=== PATIENT | male | born 1930 | race Two or more races ===

== ENCOUNTER 2017-04-02 15:07 | Inpatient (IN) | payer OTHER ==
[~2017-04-02] VITALS: Ht 177.8 cm; Wt 90.7 kg
--- NOTE | 2017-04-02 15:43 | Emergency Room Report ---
History of Present Illness General Chief Complaint: Dyspnea/Respdistress Source: Medical Record, EMS Present Illness HPI 86-year-old male presents ED for evaluation. Per EMS patient resides in [facility] and appeared more short of breath today. O2 saturation low on room air, improved on simple mask. Patient appears more altered than usual. Patient is currently being treated for pneumonia at the facility. Blood pressure also low in the field. IV fluid started. No signs of distress on arrival. No other aggravating relieving factors. No other associated symptoms Allergies: Coded Allergies: FISH OIL (Verified Allergy, Unknown, 04/02/17) SULFA (SULFONAMIDE ANTIBIOTICS) (Verified Allergy, Unknown, 04/02/17) Patient History Past Medical History: CAD, GERD Past Surgical History: none Pertinent Family History: none Social History: Denies: alcohol use, drug use, smoking Immunizations: UTD Reviewed Nursing Documentation: PMH: Agreed, PSxH: Agreed Nursing Documentation-PMH Hx Cardiac Problems: Yes - CAD, , angina, high cholesterol Hx Gastrointestinal Problems: Yes - GERD Review of Systems All Other Systems: limited Physical Exam Vital Signs Date Time Temp Pulse Resp B/P Pulse Ox O2 Delivery O2 Flow Rate FiO2 04/02/17 15:05 97.3 116 32 87/52 88 Room Air Sp02 EP Interpretation: reviewed, normal General Appearance: no apparent distress, lethargic Head: normocephalic Eyes: bilateral eye PERRL, bilateral eye normal inspection ENT: normal ENT inspection Neck: normal inspection Respiratory: crackles Cardiovascular #1: tachycardia Gastrointestinal: normal inspection Rectal: deferred Genitourinary: no CVA tenderness Musculoskeletal: normal inspection Neurologic: other - lethargic Psychiatric: other - lethargic Skin: normal inspection Lymphatic: normal inspection Medical Decision Making Diagnostic Impression: Primary Impression: Sepsis due to pneumonia Additional Impression: Renal insufficiency ER Course Hospital Course 86-year-old male presents to ED with shortness of breath, crackles, hypotensive Differential diagnoses include: Pneumonia, UTI, sepsis, dehydration, [place]/ unstable angina Clinical course Patient placed on stretcher. 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 After initial history and physical, I ordered labs, IV fluids, EKG, chest x- ray, blood cultures, UA. Labs - BUN/Cr elevated, no leukocytosis, troponins negative, lactate > 2 CXR -RLL infiltrate EKG - sinus tachycardia, no ischemic changes interpreted by me Abx given. And 30 mL per KG fluid bolus. On reassessment blood pressure and tachycardia is resolved O2 sats improved on nasal cannula . Patient is now more alert and oriented Case discussed with Dr Mai and they agreed to admit patient to their service for further care and support I feel this is a highly complex case requiring extensive working including EKG/ Rhythm strip, Xray/CT/US, Blood/urine lab work, repeat exams while in ED, and administration of strong opiates/narcotics for pain control, admission to hospital or close patient follow up. Diagnosis - sepsis due to pneumonia, renal insufficiency Patient admitted to [facility] in serious condition Labs Test 04/02/17 15:30 04/02/17 16:30 04/02/17 17:00 White Blood Count 10.5 K/UL (4.8-10.8) Red Blood Count 2.91 M/UL (4.70-6.10) Hemoglobin 8.2 G/DL (14.2-18.0) Hematocrit 25.0 % (42.0-52.0) Mean Corpuscular Volume 86 FL (80-99) Mean Corpuscular Hemoglobin 28.1 PG (27.0-31.0) Mean Corpuscular Hemoglobin Concent 32.7 G/DL (32.0-36.0) Red Cell Distribution Width 17.4 % (11.6-14.8) Platelet Count 108 K/UL (150-450) Mean Platelet Volume 5.0 FL (6.5-10.1) Neutrophils (%) (Auto) 82.5 % (45.0-75.0) Lymphocytes (%) (Auto) 9.2 % (20.0-45.0) Monocytes (%) (Auto) 7.9 % (1.0-10.0) Eosinophils (%) (Auto) 0.1 % (0.0-3.0) Basophils (%) (Auto) 0.3 % (0.0-2.0) Sodium Level 136 mEQ/L (135-145) Potassium Level 4.8 mEQ/L (3.4-4.9) Chloride Level 101 mEQ/L (98-107) Carbon Dioxide Level 21 mEQ/L (20-30) Anion Gap 14 (5-15) Blood Urea Nitrogen 48 mg/dL (7-23) Creatinine 2.0 mg/dL (0.7-1.2) Estimat Glomerular Filtration Rate mL/min (>60) Glucose Level 142 mg/dL (74-106) Lactic Acid Level 2.30 mmol/L (0.66-2.22) 2.10 mmol/L (0.66-2.22) Calcium Level 9.5 mg/dL (8.6-10.2) Total Bilirubin 0.5 mg/dL (0.0-1.2) Aspartate Amino Transf (AST/SGOT) 47 U/L (5-40) Alanine Aminotransferase (ALT/SGPT) 14 U/L (3-41) Alkaline Phosphatase 870 U/L (40-129) Total Creatine Kinase 341 U/L (38-174) Creatine Kinase MB 3.1 ng/mL (< 6.7) Creatine Kinase MB Relative Index 0.9 Troponin I < 0.30 ng/mL (<=0.30) Pro-B-Type Natriuretic Peptide 3200 pg/mL (0-450) Total Protein 6.1 g/dL (6.6-8.7) Albumin 2.5 g/dL (3.5-5.2) Globulin 3.6 g/dL Albumin/Globulin Ratio 0.6 (1.0-2.7) EKG Diagnostic Results Rate: tachycardiac Rhythm: NSR ST Segments: no acute changes ASA given to the pt in ED: No Rhythm Strip Diag. Results EP Interpretation: yes Rhythm: NSR, no PVC's, no ectopy Chest X-Ray Diagnostic Results Chest X-Ray Diagnostic Results : Chest X-Ray Ordered: Yes # of Views/Limited/Complete: 1 View Indication: Shortness of Breath EP Interpretation: Yes Interpretation: no pneumothorax, other - sternotomy wires, RLL atelectasis/ infiltrate Impression: Other - pneumonia Interpreting ER Provider: Electronically signed by Lee Triana MD Last Vital Signs Date Time Temp Pulse Resp B/P Pulse Ox O2 Delivery O2 Flow Rate FiO2 04/02/17 15:05 97.3 116 32 87/52 88 Room Air Status: improved Disposition: ADMITTED INPATIENT Condition: Serious LEE TRIANA M.D. Apr 02, 2017 15:43
[2017-04-02 15:49] VITALS: BP 105/75
[2017-04-02] MEDS ORDERED: AZITHROMYCIN250 MG ORAL (16:03)
[2017-04-02] MEDS ORDERED: SENNA S TABLET1 EAC1 PO (16:03)
[2017-04-02] MEDS ORDERED: LEXAPRO10 MG ORAL (16:03)
[2017-04-02] MEDS ORDERED: ASPIRIN EC81 MG ORAL (16:03)
[2017-04-02] MEDS ORDERED: ACETAMINOPHEN325 M1 ORAL (16:03)
[2017-04-02] MEDS ORDERED: ISOPTO TEARS15 ML BOTH EYES (16:03)
[2017-04-02] MEDS ORDERED: METOPROLOL TART25 MG ORAL (16:03)
[2017-04-02] MEDS ORDERED: ZANTAC150 MG ORAL (16:03)
[2017-04-02] MEDS ORDERED: BISACODYL5 MG ORAL (16:03)
[2017-04-02] MEDS ORDERED: ARTIFICIAL TEAR15 ML LEFT EYE (16:03)
[2017-04-02] MEDS ORDERED: VITAMIN D1000 UNI1 ORAL (16:03)
[2017-04-02] MEDS ORDERED: DOCUSATE SODIU100 MG ORAL (16:03)
[2017-04-02] MEDS ORDERED: FERROUS SULFAT325 MG ORAL (16:03)
[2017-04-02] MEDS ORDERED: NORCO 5-325 TA1 EAC1 ORAL (16:03)
[2017-04-02] MEDS ORDERED: ATORVASTATIN CA80 MG ORAL (16:03)
[2017-04-02] MEDS ORDERED: MILK OF MA400 MG/51 ORAL (16:03)
[2017-04-02] MEDS ORDERED: POLYETHYLENE LEFT EYE (16:03)
[2017-04-02] MEDS ORDERED: CYCLOSPORINE LEFT EYE (16:03)
[2017-04-02] MEDS ORDERED: ROCEPHIN 11 GM/50 ML IVPB (16:03)
[2017-04-02] MEDS ORDERED: TAMSULOSIN HCL0.4 MG ORAL (16:03)
--- NOTE | 2017-04-02 16:03 | Diagnostic Imaging Report ---
Indication: Chest pain Technique: One view of the chest Comparison: none Findings: Patient is slightly rotated to the right. There is some atelectasis at the right lung base and possibly some focal patchy consolidation. Lungs and pleural spaces are otherwise clear. The bones are equivocally diffusely somewhat sclerotic. Is evidence of prior CABG. Heart size is upper limits of normal Impression: Right basilar atelectasis and possibly some focal patchy consolidation Equivocal diffuse mild osteosclerosis, may reflect diffuse systemic disease if real.
[2017-04-02 16:04] LABS: TROPONIN I < 0.30 ng/mL (<=0.30)
[2017-04-02 16:06] LABS: BASOPHILS % (AUTO) 0.3 % (0.0-2.0); EOSINOPHILS % (AUTO) 0.1 % (0.0-3.0); LYMPHOCYTES % (AUTO) 9.2 % (20.0-45.0); MEAN CORPUSCULAR HEMOGLOBIN 28.1 PG (27.0-31.0); MEAN CORPUSCULAR HGB CONC 32.7 G/DL (32.0-36.0); MEAN CORPUSCULAR VOLUME 86 FL (80-99); MONOCYTES % (AUTO) 7.9 % (1.0-10.0); NEUTROPHILS % (AUTO) 82.5 % (45.0-75.0); PLATELET COUNT 108 K/UL (150-450); RED BLOOD COUNT 2.91 M/UL (4.70-6.10); RED CELL DISTRIBUTION WIDTH 17.4 % (11.6-14.8); WHITE BLOOD COUNT 10.5 K/UL (4.8-10.8)
[2017-04-02 16:07] LABS: ALANINE AMINOTRANSFERASE 14 U/L (3-41); ALBUMIN/GLOBULIN RATIO 0.6 (1.0-2.7); ANION GAP 14 (5-15); ASPARTATE AMINO TRANSFERASE 47 U/L (5-40); CALCIUM 9.5 mg/dL (8.6-10.2); CARBON DIOXIDE 21 mEQ/L (20-30); CHLORIDE 101 mEQ/L (98-107); HEMOLYSIS 4; POTASSIUM 4.8 mEQ/L (3.4-4.9); SODIUM 136 mEQ/L (135-145); TOTAL PROTEIN 6.1 g/dL (6.6-8.7)
[2017-04-02 16:10] LABS: REFLEX LACTIC ACID YES OR NO YES
[2017-04-02 16:18] LABS: CKMB 3.1 ng/mL (< 6.7)
[2017-04-02] MEDS ORDERED: Vancomycin 1.5gm/D5W 250ml 250 ML IVPB ONE (16:30)
[2017-04-02] MEDS ORDERED: Zosyn 2.25gm inj IV SCH (16:30)
[2017-04-02] MEDS ORDERED: Piperacillin/Tazobactam 3.375 GM in NS 110 ML IVPB ONE (16:30)
[2017-04-02 17:17] LABS: APPEARANCE,URINE CLOUDY; KETONES,URINE 1+ (NEGATIVE); LEUKOCYTE ESTERASE ,URINE 3+ (NEGATIVE); NITRITE,URINE NEGATIVE (NEGATIVE); PH,URINE 5 (4.5-8.0); PROTEIN,URINE 3+ (NEGATIVE); UROBILINOGEN,URINE NORMAL MG/DL (0.0-1.0)
[2017-04-02 17:32] LABS: BACTERIA,URINE MANY /HPF; RBC,URINE 0-2 /HPF (0 - 0)
[2017-04-02 17:33] LABS: URIC ACID CRYSTALS,URINE MODERATE /LPF
[2017-04-02 17:34] LABS: AMORPHOUS SEDIMENT,UR MODERATE /LPF
[2017-04-02] MEDS: DuoNeb 0.5-3(2.5)mg/3ml neb HHN SCH ×2 (19:00→23:23)
[2017-04-02] MEDS ORDERED: Zosyn 3.375gm inj ONE (19:15)
[2017-04-02 19:20] VITALS: BP 124/71
--- NOTE | 2017-04-02 20:00 | History and Physical Report ---
DATE OF ADMISSION: 04/02/2017 CHIEF COMPLAINT: Sepsis. HISTORY OF PRESENT ILLNESS: The patient an 86-year-old man who apparently was hospitalized recently for gross hematuria. He has a Bella catheter and he was transferred to the nursing facility from some outside hospital. He developed pneumonia and was treated at facility with cephalosporin and azithromycin, but today became hypotensive and poorly responsive. He was transferred to the emergency department by paramedics today. He was found to be hypotensive and fluids were given with improvement. The patient can provide no further history and states he is feeling fine. PAST MEDICAL HISTORY: The patient has metastatic prostate cancer, hypertension, acid reflux, coronary disease with coronary artery bypass graft x4, chronic kidney disease stage 3, chronic urinary retention, major depression, and chronic anemia. He has severe physical deconditioning, bilateral cataracts, and urinary tract infection. He has refused a bone scan recently. He has hyperlipidemia and is followed by Cardiology. He has hypertension as well as vitamin D deficiency and chronic back pain. Family contact is the patient's brother #[phone]. CODE STATUS: Full Code. ALLERGIES: Fish oil and sulfa. REVIEW OF SYSTEMS: Cannot be obtained. PHYSICAL EXAMINATION: GENERAL: The patient is alert, lying in bed, answering some simple questions. VITAL SIGNS: He has sinus tachycardia. Temperature is normal. The blood pressure was 87/52, but improved to 105 systolic with fluids and saturation was 88%, but improved with oxygen. SKIN: Warm and dry. HEENT: The head is normocephalic. He is overweight. NECK: No jugular venous distention. CHEST: He has rhonchi. CARDIAC: Rhythm is regular. ABDOMEN: Soft and nontender. There is no liver spleen enlargement. No mass. There is a small umbilical hernia. GENITOURINARY: Urinary system shows a Bella catheter with no hematuria. There is minimal sediment, but the low urine output in the bag. EXTREMITIES: He had no edema. NEUROLOGIC: Follows simple commands. No gross focal weakness. LABORATORY DIAGNOSTIC [place]: [place] [address], hemoglobin 8.2, and platelets 108,000. BUN is 48, creatinine 2.0 (baseline creatinine is 1.2), blood sugar 142. Lactic acid is 2.3. Alkaline phosphatase is elevated at 870. Troponin is negative. ProBNP is 3200. Albumin 2.5. Urinalysis is pending. Chest x-ray shows a right lower lobe infiltrate. IMPRESSION: 1. Sepsis with shock, improved. 2. Pneumonia with hypoxemic respiratory failure. 3. Metastatic prostate cancer with indwelling Bella catheter due to urinary retention and hematuria. 4. Coronary heart disease, status post bypass surgery. 5. Dehydration with acute kidney injury. 6. Chronic kidney disease stage 3. 7. Hypertension, now hypotensive. 8. Possible congestive heart failure with elevated proBNP. 9. Hyperlipidemia. 10. Thrombocytopenia likely due to sepsis. 11. . PLAN: The patient will be admitted to [facility]. We will give fluids and get Nephrology and Cardiology consultation. Antibiotics will be administered as well as respiratory treatments. Joni Mai M.D. DR: CAITY JOB#: [id number] CC: Joni Mai M.D.; Fax#: [phone] Lang, M.D. ; Fax#: [phone] Kattan, M.D.
[2017-04-02 20:32] VITALS: BP 123/71
[2017-04-02] MEDS: D5NS 1,000 ML IV SCH (20:50)
--- NOTE | 2017-04-02 21:45 | Consultation ---
DATE OF CONSULTATION: 04/02/2017 REFERRING PHYSICIAN: Joni Mai M.D. REASON FOR CONSULTATION: Elevated BUN and creatinine and elevated CPK. HISTORY OF PRESENT ILLNESS: The patient presents with hypotension, hypoxemia, O2 saturation 88%. He is a resident of an [facility] and not a good historian. He has a history of prior coronary artery bypass surgery. Other records indicate he has chronic kidney disease stage 3, adult failure to thrive, generalized muscle weakness, inability to walk, primary hypertension, hyperlipidemia, gastroesophageal reflux, and obstructive and reflux uropathy. The details of the above are not available. He has had a Klebsiella urinary tract infection recently apparently. PAST MEDICAL HISTORY: In addition to the above, there is a history of prostate cancer, chronic urinary retention with indwelling Bella, recently hospitalized for hematuria. He has had hypotension in the past and delirium. He had a fall at [facility] recently. Also, he has a history of protein-calorie malnutrition, hyperlipidemia, hypertension, GERD, vitamin D deficiency, bilateral shoulder pain and arthritis. His past labs from notes in the chart, his creatinine has been in the range of 1.4 to 1.7 with a GFR of 50. Note he had a creatinine 1.2 with a BUN of 32 on 03/30/2017. PAST SURGICAL HISTORY: Coronary artery bypass surgery. MEDICATIONS: Current medications at the [facility] include the following Artificial Tears and baby aspirin. The rest of his medication list is not here on this chart. From the emergency room record, he has also been on atorvastatin, Zithromax, Dulcolax, ceftriaxone, vitamin D3, DSS, Lexapro, ferrous sulfate, Isopto tears, milk of magnesia, metoprolol, polyethylene glycol, ranitidine, Senna, and tamsulosin. HABITS: He denies smoking or alcohol. REVIEW OF SYSTEMS: Other than the above, no other pertinent information PHYSICAL EXAMINATION: GENERAL: The patient is seen in the emergency department. He is a chronically ill-appearing elderly man, weak, but in no severe distress. VITAL SIGNS: Temperature 98.9 degrees, pulse 116, respirations 32, blood pressure 105/75 and earlier 87/52, and O2 saturation is 96% on nasal cannula four liters, 88% on room air. HEENT: Oral mucosa is dry. There is ptosis of the left eyelid. Ocular motions intact in all directions. NECK: No adenopathy. LUNGS: Clear. Distant breath sounds. HEART: Rhythm is regular. I hear no murmur. He is tachycardic. ABDOMEN: Soft. I am unable to feel liver or spleen. No focal tenderness. GENITOURINARY: Penis and testes normal. Bella catheter in place. EXTREMITIES: No edema. There is some slight cyanosis of the toes. NEUROLOGIC: He is alert and responsive, but a poor historian. No focal weakness. PERTINENT LABORATORY AND DIAGNOSTIC DATA: White count 10.5 and hemoglobin 8.2. Sodium 136, potassium 4.8, chloride 101, CO2 21, BUN 48, creatinine 2, and glucose of 142. Lactic acid 2.3 and 2.1. AST is 47, alkaline phosphatase 870. CK is 341. BNP is 3200. Troponin less than 0.30. Chest x-ray shows right basilar atelectasis. Urinalysis shows 10-15 white cells per high-power field, moderate uric acid crystals, and moderate amorphous sediment. IMPRESSION: 1. Acute kidney injury likely prerenal, possible acute tubular necrosis secondary to sepsis. 2. Chronic kidney disease stage 3. 3. Pyuria and possible urinary tract infection, possible pyelonephritis and sepsis. 4. Chronic urinary retention. 5. Recurring urinary tract infections. 6. History of coronary artery bypass. 7. Atelectasis and hypoxemia. 8. Failure to thrive. 9. Elevated alkaline phosphatase. 10. Rhabdomyolysis. PLAN: The patient will be hydrated cautiously and broad-spectrum antibiotics. I will order abdominal ultrasound in view of his abnormal liver enzymes. We will watch his renal function closely and try to avoid any nephrotoxic agent. Thank you so much. Willie Cash M.D. DR: PIERRE JOB#: [id number] CC:
[2017-04-03] VITALS: BP 120/50
[2017-04-03] MEDS: DuoNeb 0.5-3(2.5)mg/3ml neb HHN SCH ×6 (03:24→23:23)
[2017-04-03 04:00] VITALS: BP 111/62
[2017-04-03] MEDS: Zosyn 3.375gm q8h **Extended infusion IVPB SCH ×6 (04:00→22:00)
[2017-04-03] MEDS: D5NS 1,000 ML IV SCH (04:00)
[2017-04-03 05:11] LABS: MEAN CORPUSCULAR HGB CONC 32.2 G/DL (32.0-36.0); MEAN CORPUSCULAR VOLUME 87 FL (80-99); PLATELET COUNT 110 K/UL (150-450); RED BLOOD COUNT 2.65 M/UL (4.70-6.10); RED CELL DISTRIBUTION WIDTH 17.1 % (11.6-14.8); WHITE BLOOD COUNT 8.6 K/UL (4.8-10.8)
[2017-04-03 06:02] LABS: TROPONIN I < 0.30 ng/mL (<=0.30)
[2017-04-03 06:07] LABS: URIC ACID 7.8 mg/dL (3.0-7.5)
[2017-04-03 06:27] LABS: ALANINE AMINOTRANSFERASE 14 U/L (3-41); ALBUMIN/GLOBULIN RATIO 0.7 (1.0-2.7); ANION GAP 12 (5-15); ASPARTATE AMINO TRANSFERASE 52 U/L (5-40); CALCIUM 9.1 mg/dL (8.6-10.2); CARBON DIOXIDE 22 mEQ/L (20-30); CHLORIDE 104 mEQ/L (98-107); CREATININE 1.6 mg/dL (0.7-1.2); HEMOLYSIS 2; SODIUM 138 mEQ/L (135-145); TOTAL PROTEIN 5.2 g/dL (6.6-8.7)
[2017-04-03 08:00] VITALS: BP 102/61
[2017-04-03 08:13] LABS: BAND NEUTROPHILS % (MANUAL) 0 % (0-8); BASOPHILS % (MANUAL) 0 % (0-2); EOSINOPHILS % (MANUAL) 0 % (0-3); LYMPHOCYTES % (MANUAL) 9 % (20-45); NEUTROPHILS % (MANUAL) 87 % (45-75); PLATELET ESTIMATE DECREASED; PLATELET MORPHOLOGY NORMAL; TOTAL CELLS COUNTED 100
--- NOTE | 2017-04-03 08:58 | Pulmonology Progress Note ---
Assessment/Plan Assessment/Plan 1. Sepsis with shock, improved. 2. Pneumonia with hypoxemic respiratory failure. 3. Metastatic prostate cancer with indwelling Bella catheter due to urinary retention and hematuria. 4. Coronary heart disease, status post bypass surgery. 5. Dehydration with acute kidney injury. 6. Chronic kidney disease stage 3. 7. Hypertension, now hypotensive. 8. Possible congestive heart failure with elevated proBNP. 9. Hyperlipidemia. 10. Thrombocytopenia likely due to sepsis. 11. Anemia PLAN: Continue fluids Nephrology and Cardiology consultation. Antibiotics will be administered as well as respiratory treatments. Consider transfusion Subjective Interval Events: Comfortable Constitutional: Reports: no symptoms HEENT: Repors: no symptoms Respiratory: Reports: no symptoms Cardiovascular: Reports: no symptoms Gastrointestinal/Abdominal: Reports: no symptoms Allergies: Coded Allergies: FISH OIL (Verified Allergy, Unknown, 04/02/17) SULFA (SULFONAMIDE ANTIBIOTICS) (Verified Allergy, Unknown, 04/02/17) Objective Last 24 Hour Vital Signs Date Time Temp Pulse Resp B/P Pulse Ox O2 Delivery O2 Flow Rate FiO2 04/03/17 07:45 110 20 99 Nasal Cannula 3.0 04/03/17 07:33 Nasal Cannula 3.0 04/03/17 07:33 110 19 96 Nasal Cannula 3.0 04/03/17 07:32 96 Nasal Cannula 3.0 04/03/17 04:00 100 04/03/17 04:00 98.7 103 24 111/62 96 Nasal Cannula 2.0 04/03/17 03:36 91 16 100 Nasal Cannula 2.0 04/03/17 03:25 99 16 97 Nasal Cannula 2.0 04/03/17 00:00 98.1 101 24 120/50 100 Nasal Cannula 2.0 04/03/17 00:00 97 04/02/17 23:39 Nasal Cannula 2.0 04/02/17 23:39 100 16 100 Nasal Cannula 2.0 04/02/17 23:39 100 Nasal Cannula 2.0 04/02/17 23:37 103 16 Nasal Cannula 2.0 04/02/17 23:23 104 16 100 Nasal Cannula 2.0 04/02/17 21:31 100 04/02/17 21:09 98.9 100 23 123/71 100 Nasal Cannula 4.0 04/02/17 20:32 98.9 100 123/71 100 Nasal Cannula 4.0 04/02/17 19:20 98.9 94 23 124/71 100 Nasal Cannula 4.0 04/02/17 15:49 116 32 Nasal Cannula 4.0 04/02/17 15:49 98.9 101 32 105/75 96 Nasal Cannula 4.0 04/02/17 15:05 97.3 116 32 87/52 88 Room Air Intake and Output 04/02/17 04/03/17 19:00 07:00 Intake Total 1500 ml 1249.17 ml Output Total 600 ml Balance 1500 ml 649.17 ml Intake IV Total 1249.17 ml Other 1500 ml Output Urine Total 600 ml General Appearance: no acute distress HEENT: normocephalic Respiratory/Chest: chest wall non-tender, lungs clear Cardiovascular: normal peripheral pulses, normal rate Abdomen: normal bowel sounds Microbiology Date/Time Source Procedure Growth Status 04/02/17 17:00 Urine,Clean Catch Urine Culture - Preliminary NO GROWTH Resulted Laboratory Tests 04/02/17 15:30: White Blood Count 10.5, Red Blood Count 2.91L, Hemoglobin 8.2L, Hematocrit 25.0L , Mean Corpuscular Volume 86, Mean Corpuscular Hemoglobin 28.1, Mean Corpuscular Hemoglobin Concent 32.7, Red Cell Distribution Width 17.4H, Platelet Count 108L, Mean Platelet Volume 5.0L, Neutrophils (%) (Auto) 82.5H, Lymphocytes (%) (Auto) 9.2L, Monocytes (%) (Auto) 7.9, Eosinophils (%) (Auto) 0.1, Basophils (%) (Auto) 0.3, Sodium Level 136, Potassium Level 4.8, Chloride Level 101, Carbon Dioxide Level 21, Anion Gap 14, Blood Urea Nitrogen 48H, Creatinine 2.0H, Estimat Glomerular Filtration Rate , Glucose Level 142H, Lactic Acid Level 2.30H, Calcium Level 9.5, Total Bilirubin 0.5, Aspartate Amino Transf (AST/SGOT) 47H, Alanine Aminotransferase (ALT/SGPT) 14, Alkaline Phosphatase 870H, Total Creatine Kinase 341H, Creatine Kinase MB 3.1, Creatine Kinase MB Relative Index 0.9, Troponin I < 0.30, Pro-B-Type Natriuretic Peptide 3200H, Total Protein 6.1L, Albumin 2.5L, Globulin 3.6, Albumin/Globulin Ratio 0.6L 04/02/17 16:30: Lactic Acid Level 2.10 04/02/17 17:00: Urine Color Yellow, Urine Appearance Cloudy, Urine pH 5, Urine Specific [place] 1.020, Urine Protein 3+H, Urine Glucose (UA) Negative, Urine Ketones 1+H, Urine Occult Blood 4+H, Urine Nitrite Negative, Urine Bilirubin Negative, Urine Urobilinogen Normal, Urine Leukocyte Esterase 3+H, Urine RBC 0-2H, Urine WBC 10- 15H, Urine Squamous Epithelial Cells None, Urine Uric Acid Crystals ModerateH, Urine Amorphous Sediment ModerateH, Urine Bacteria ManyH 04/03/17 03:50: White Blood Count 8.6, Red Blood Count 2.65L, Hemoglobin 7.4L, Hematocrit 23.1L , Mean Corpuscular Volume 87, Mean Corpuscular Hemoglobin 28.0, Mean Corpuscular Hemoglobin Concent 32.2, Red Cell Distribution Width 17.1H, Platelet Count 110L, Mean Platelet Volume 5.0L, Neutrophils (%) (Auto) , Lymphocytes (%) (Auto) , Monocytes (%) (Auto) , Eosinophils (%) (Auto) , Basophils (%) (Auto) , Sodium Level 138, Potassium Level 4.0, Chloride Level 104 , Carbon Dioxide Level 22, Anion Gap 12, Blood Urea Nitrogen 45H, Creatinine 1.6H, Estimat Glomerular Filtration Rate , Glucose Level 146H, Calcium Level 9.1 , Total Bilirubin 0.3, Aspartate Amino Transf (AST/SGOT) 52H, Alanine Aminotransferase (ALT/SGPT) 14, Alkaline Phosphatase 801H, Troponin I < 0.30, Total Protein 5.2L, Albumin 2.2L, Globulin 3.0, Albumin/Globulin Ratio 0.7L, Differential Total Cells Counted 100, Neutrophils % (Manual) 87H, Lymphocytes % (Manual) 9L, Monocytes % (Manual) 4, Eosinophils % (Manual) 0, Basophils % ( Manual) 0, Band Neutrophils 0, Platelet Estimate DecreasedL, Platelet Morphology Normal, Red Blood Cell Morphology Normal, Uric Acid 7.8H, Amylase Level 24, Lipase 11, Prostate Specific Antigen 2113.0H Current Medications Medications (Trade) Dose Ordered Sig/Salvatore Route PRN Reason Start Time Stop Time Status Last Admin Dose Admin Albuterol/ Ipratropium 3 ml 3 ml Q4HRT HHN 04/02/17 19:00 04/07/17 18:59 04/03/17 07:32 Dextrose (Dextrose 50%) STAT PRN IV Hypoglycemia 04/03/17 08:00 05/03/17 07:59 Dextrose/Sodium Chloride (D5ns) 1,000 ml @ 100 mls/hr Q10H IV 04/02/17 18:15 05/02/17 18:14 04/03/17 04:00 Insulin Aspart (NovoLOG) BEFORE MEALS AND HS SUBQ 04/03/17 11:30 05/03/17 11:29 Pantoprazole (Protonix) 40 mg DAILY IVP 04/03/17 09:00 05/03/17 08:59 Piperacillin Sod/ Tazobactam Sod 3.375 gm/Dextrose 110 ml @ 27.5 mls/hr Q8HR@0400,1200,2000 IVPB 04/03/17 04:00 04/10/17 03:59 04/03/17 04:00 Vancomycin HCl 1 ea 1 ea DAILY PRN MISC Per rx protocol 04/02/17 16:30 05/02/17 16:29 Vancomycin HCl/ Dextrose (Vancomycin/D5W) 275 ml @ 183.708 mls/hr Q24H IVPB 04/03/17 20:00 04/08/17 19:59 Gene Villeda MD Apr 03, 2017 08:58
--- NOTE | 2017-04-03 10:50 | Diagnostic Imaging Report ---
Indication:Abdominal pain Technique: Grayscale and duplex Doppler imaging of the abdomen performed. Comparison: None Findings: The liver, demonstrated part of the pancreas, aorta and IVC, spleen appear unremarkable. There are multiple bilateral renal cysts. There is very large cyst in the left flank measuring 18 cm likely arises from the left kidney at its upper pole. A very large cyst in the right flank measuring 16 x 11 cm likely associated with the right kidney. Aorta and pancreas are not seen well on this study. Small gallstones are present. There is no biliary ductal dilatation identified. Doppler evaluation of the main portal vein shows patency. There is no ascites. No hydronephrosis seen. CBD is between 7 and 8 mm in diameter. Impression: Multiple, very large bilateral renal cysts. Tiny gallstones. Retroperitoneal structures not seen well within the pancreas and aorta.
[2017-04-03] MEDS: Pantoprazole Inj IVP SCH (11:01)
[2017-04-03] MEDS: NovoLOG Insulin Flexpen SUBQ SCH ×3 (11:55→21:00)
[2017-04-03 12:00] VITALS: BP 105/59
--- NOTE | 2017-04-03 12:26 | Diagnostic Imaging Report ---
Indication: Dyspnea Comparison: 04/02/17 A single view chest radiograph was obtained. Findings: The bones are abnormal and sclerotic. Given the age and sex of the patient, the possible diagnosis of prostate metastasis should be strongly considered. Clinical workup and evaluation is recommended. The heart is enlarged. Sternotomy is noted. Mild interstitial edema may be present. Impression: Abnormal bones. Further workup is needed as discussed above. Suspected mild interstitial edema
--- NOTE | 2017-04-03 14:35 | Nephrology Progress Note ---
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 (5) Hypotension (6) Renal cyst (7) CKD (chronic kidney disease) stage 3, GFR 30-59 ml/min (8) YVETTE (acute kidney injury) Plan reduce iv fluids, empiric atb for possible sepsis, transfusing Subjective ROS Limited/Unobtainable: Yes Objective Objective Last 24 Hour Vital Signs Date Time Temp Pulse Resp B/P Pulse Ox O2 Delivery O2 Flow Rate FiO2 04/03/17 11:16 107 20 97 Nasal Cannula 3.0 04/03/17 08:00 111 04/03/17 08:00 97.7 114 20 102/61 96 Nasal Cannula 3.0 04/03/17 07:45 110 20 99 Nasal Cannula 3.0 04/03/17 07:33 Nasal Cannula 3.0 04/03/17 07:33 110 19 96 Nasal Cannula 3.0 04/03/17 07:32 96 Nasal Cannula 3.0 04/03/17 04:00 100 04/03/17 04:00 98.7 103 24 111/62 96 Nasal Cannula 2.0 04/03/17 03:36 91 16 100 Nasal Cannula 2.0 04/03/17 03:25 99 16 97 Nasal Cannula 2.0 04/03/17 00:00 98.1 101 24 120/50 100 Nasal Cannula 2.0 04/03/17 00:00 97 04/02/17 23:39 Nasal Cannula 2.0 04/02/17 23:39 100 16 100 Nasal Cannula 2.0 04/02/17 23:39 100 Nasal Cannula 2.0 04/02/17 23:37 103 16 Nasal Cannula 2.0 04/02/17 23:23 104 16 100 Nasal Cannula 2.0 04/02/17 21:31 100 04/02/17 21:09 98.9 100 23 123/71 100 Nasal Cannula 4.0 04/02/17 20:32 98.9 100 23 123/71 100 Nasal Cannula 4.0 04/02/17 19:20 98.9 94 23 124/71 100 Nasal Cannula 4.0 04/02/17 15:49 116 32 Nasal Cannula 4.0 04/02/17 15:49 98.9 101 32 105/75 96 Nasal Cannula 4.0 04/02/17 15:05 97.3 116 32 87/52 88 Room Air Intake and Output 04/02/17 04/03/17 19:00 07:00 Intake Total 1500 ml 1249.17 ml Output Total 600 ml Balance 1500 ml 649.17 ml Intake IV Total 1249.17 ml Other 1500 ml Output Urine Total 600 ml Laboratory Tests 04/02/17 15:30: White Blood Count 10.5, Red Blood Count 2.91L, Hemoglobin 8.2L, Hematocrit 25.0L , Mean Corpuscular Volume 86, Mean Corpuscular Hemoglobin 28.1, Mean Corpuscular Hemoglobin Concent 32.7, Red Cell Distribution Width 17.4H, Platelet Count 108L, Mean Platelet Volume 5.0L, Neutrophils (%) (Auto) 82.5H, Lymphocytes (%) (Auto) 9.2L, Monocytes (%) (Auto) 7.9, Eosinophils (%) (Auto) 0.1, Basophils (%) (Auto) 0.3, Sodium Level 136, Potassium Level 4.8, Chloride Level 101, Carbon Dioxide Level 21, Anion Gap 14, Blood Urea Nitrogen 48H, Creatinine 2.0H, Estimat Glomerular Filtration Rate , Glucose Level 142H, Lactic Acid Level 2.30H, Calcium Level 9.5, Total Bilirubin 0.5, Aspartate Amino Transf (AST/SGOT) 47H, Alanine Aminotransferase (ALT/SGPT) 14, Alkaline Phosphatase 870H, Total Creatine Kinase 341H, Creatine Kinase MB 3.1, Creatine Kinase MB Relative Index 0.9, Troponin I < 0.30, Pro-B-Type Natriuretic Peptide 3200H, Total Protein 6.1L, Albumin 2.5L, Globulin 3.6, Albumin/Globulin Ratio 0.6L 04/02/17 16:30: Lactic Acid Level 2.10 04/02/17 17:00: Urine Color Yellow, Urine Appearance Cloudy, Urine pH 5, Urine Specific [place] 1.020, Urine Protein 3+H, Urine Glucose (UA) Negative, Urine Ketones 1+H, Urine Occult Blood 4+H, Urine Nitrite Negative, Urine Bilirubin Negative, Urine Urobilinogen Normal, Urine Leukocyte Esterase 3+H, Urine RBC 0-2H, Urine WBC 10- 15H, Urine Squamous Epithelial Cells None, Urine Uric Acid Crystals ModerateH, Urine Amorphous Sediment ModerateH, Urine Bacteria ManyH 04/03/17 03:50: White Blood Count 8.6, Red Blood Count 2.65L, Hemoglobin 7.4L, Hematocrit 23.1L , Mean Corpuscular Volume 87, Mean Corpuscular Hemoglobin 28.0, Mean Corpuscular Hemoglobin Concent 32.2, Red Cell Distribution Width 17.1H, Platelet Count 110L, Mean Platelet Volume 5.0L, Neutrophils (%) (Auto) , Lymphocytes (%) (Auto) , Monocytes (%) (Auto) , Eosinophils (%) (Auto) , Basophils (%) (Auto) , Sodium Level 138, Potassium Level 4.0, Chloride Level 104 , Carbon Dioxide Level 22, Anion Gap 12, Blood Urea Nitrogen 45H, Creatinine 1.6H, Estimat Glomerular Filtration Rate , Glucose Level 146H, Calcium Level 9.1 , Total Bilirubin 0.3, Aspartate Amino Transf (AST/SGOT) 52H, Alanine Aminotransferase (ALT/SGPT) 14, Alkaline Phosphatase 801H, Troponin I < 0.30, Total Protein 5.2L, Albumin 2.2L, Globulin 3.0, Albumin/Globulin Ratio 0.7L, Differential Total Cells Counted 100, Neutrophils % (Manual) 87H, Lymphocytes % (Manual) 9L, Monocytes % (Manual) 4, Eosinophils % (Manual) 0, Basophils % ( Manual) 0, Band Neutrophils 0, Platelet Estimate DecreasedL, Platelet Morphology Normal, Red Blood Cell Morphology Normal, Uric Acid 7.8H, Amylase Level 24, Lipase 11, Prostate Specific Antigen 2113.0H Height (Feet): 5 Height (Inches): 10.00 Weight (Pounds): 200 General Appearance: confused EENT: other - ptosis os Neck: normal alignment Cardiovascular: normal rate, regular rhythm Respiratory/Chest: lungs clear Abdomen: soft, distended Extremities: trace edema Neurologic: disoriented JADA HARO Apr 03, 2017 14:35
[2017-04-03] MEDS ORDERED: D5NS 1,000 ML IV SCH (15:00)
--- NOTE | 2017-04-03 15:08 | Diagnostic Imaging Report ---
Indication: NG tube Comparison: None Single view of the abdomen obtained NG tube is seen projected over the stomach lumen. Bowel gas pattern is nonspecific. Impression: Limited evaluation. Nasogastric tube is in the stomach
[2017-04-03 16:00] VITALS: BP 107/52
--- NOTE | 2017-04-03 16:56 | Diagnostic Imaging Report ---
Indication: NG tube placement Comparison: at 14:20 Single view of the abdomen obtained Findings: The NG tube is in the airway. The tip is projected over the right lung base and the tip should be removed. This was conveyed to the nurse on 16:48, 04/03/17. Sternotomy noted. Heart size is normal. Interstitial opacities are present, nonspecific. Impression: NG tube is in the airway. Recommend immediate removal. This is conveyed to the nurse on 2 W.
[2017-04-03] MEDS: Metoprolol 25mg tab ORAL SCH (18:43)
[2017-04-03 20:00] VITALS: BP 116/70
[2017-04-03] MEDS ORDERED: Vancomycin 750mg/D5W 275ml IVPB SCH ×2 (20:00)
[2017-04-03] MEDS: Vancomycin 1 GM in D5W 275 ML IVPB SCH (21:14)
--- NOTE | 2017-04-03 22:15 | Progress Note ---
DATE: 04/03/2017 CARDIOLOGY PROGRESS NOTE SUBJECTIVE: The patient is out of the intensive care unit and off pressors. He continues to have congestion and failed a swallow evaluation. OBJECTIVE: VITAL SIGNS: Blood pressure 111/62, pulse 103, respiratory rate 24, and afebrile. HEENT: Dry mucous membranes. NECK: Supple. Jugular venous pressure is slightly elevated. LUNGS: With coarse breath sounds. CARDIAC: Regular rhythm. Rapid rate. Normal S1 and S2 with a fourth heart sound. ABDOMEN: Soft. EXTREMITIES: Without edema. Distal pulses are palpable. LABORATORY DATA: White count 8.6 and hemoglobin 7.4. Potassium 4, BUN 45, and creatinine 1.6. Troponin is negative. Albumin is 2.2. PSA is 2100. IMPRESSION: 1. Recovered shock. 2. Sepsis. 3. Hypovolemia. 4. Severe anemia. 5. Severe protein-calorie malnutrition. 6. Probable metastatic prostate cancer. 7. Acute on chronic renal failure. 8. Dysphagia. 9. Aspiration pneumonia. PLAN: 1. Cardiac monitoring. 2. Cautious hydration. 3. Packed red blood cell transfusions. 4. Antimicrobials. 5. Stress ulcer and DVT prophylaxis. 6. NG-tube for nutrition with protein supplement to follow. 7. Monitor cardiorenal parameters and electrolytes. 8. Adjust therapies accordingly. 9. Remains with critical condition and guarded prognosis. John Raza M.D. DR: SONAL JOB#: [id number] CC:
[2017-04-04] VITALS: BP 152/70
[2017-04-04] MEDS: DuoNeb 0.5-3(2.5)mg/3ml neb HHN SCH ×6 (03:04→23:22)
[2017-04-04 04:00] VITALS: BP 130/75
[2017-04-04] MEDS: Zosyn 3.375gm q8h **Extended infusion IVPB SCH ×8 (05:20→22:00)
[2017-04-04] MEDS: NovoLOG Insulin Flexpen SUBQ SCH ×4 (05:21→20:53)
[2017-04-04 06:46] LABS: MEAN CORPUSCULAR HEMOGLOBIN 28.5 PG (27.0-31.0); MEAN CORPUSCULAR HGB CONC 32.5 G/DL (32.0-36.0); MEAN CORPUSCULAR VOLUME 88 FL (80-99); MEAN PLATELET VOLUME 5.7 FL (6.5-10.1); PLATELET COUNT 88 K/UL (150-450); RED BLOOD COUNT 3.23 M/UL (4.70-6.10); RED CELL DISTRIBUTION WIDTH 16.5 % (11.6-14.8); WHITE BLOOD COUNT 6.6 K/UL (4.8-10.8)
[2017-04-04 06:48] LABS: ANION GAP 14 (5-15); CALCIUM 9.2 mg/dL (8.6-10.2); CARBON DIOXIDE 19 mEQ/L (20-30); CHLORIDE 111 mEQ/L (98-107); CREATININE 1.3 mg/dL (0.7-1.2); HEMOLYSIS 1; POTASSIUM 3.7 mEQ/L (3.4-4.9); SODIUM 144 mEQ/L (135-145)
--- NOTE | 2017-04-04 06:51 | Pulmonology Progress Note ---
Assessment/Plan Assessment/Plan 1. Sepsis with shock, improved. 2. Pneumonia with hypoxemic respiratory failure. 3. Metastatic prostate cancer with indwelling Bella catheter due to urinary retention and hematuria. 4. Coronary heart disease, status post bypass surgery. 5. Dehydration with acute kidney injury. 6. Chronic kidney disease stage 3. 7. Hypertension, now hypotensive. 8. Possible congestive heart failure with elevated proBNP. 9. Hyperlipidemia. 10. Thrombocytopenia likely due to sepsis. 11. Anemia PLAN: Continue fluids Antibiotics will be administered as well as respiratory treatments. Consider transfusion nebs and suction NPO until mentation improves FU labs Subjective ROS Limited/Unobtainable: Yes Allergies: Coded Allergies: FISH OIL (Verified Allergy, Unknown, 04/02/17) SULFA (SULFONAMIDE ANTIBIOTICS) (Verified Allergy, Unknown, 04/02/17) Subjective pt confused no distress, some bleeding in the catheter no reports of cp nv or fever does not get oob remains on o2 remains NPO at this time due to confusion and high risk of aspiration./ Objective Last 24 Hour Vital Signs Date Time Temp Pulse Resp B/P Pulse Ox O2 Delivery O2 Flow Rate FiO2 04/04/17 04:00 106 04/04/17 04:00 98.2 81 18 130/75 98 Nasal Cannula 3.0 04/04/17 03:14 111 18 99 Nasal Cannula 3.0 04/04/17 03:05 111 19 98 Nasal Cannula 3.0 04/04/17 00:00 104 04/04/17 00:00 98.1 100 18 152/70 99 Nasal Cannula 3.0 04/03/17 23:29 110 18 99 Nasal Cannula 3.0 04/03/17 23:24 106 17 99 Nasal Cannula 3.0 04/03/17 20:00 97.9 80 18 116/70 97 Nasal Cannula 3.0 04/03/17 20:00 99 04/03/17 19:06 114 18 99 Nasal Cannula 3.0 04/03/17 19:01 108 18 98 Nasal Cannula 3.0 04/03/17 19:01 Nasal Cannula 3.0 04/03/17 19:01 98 Nasal Cannula 4.0 04/03/17 18:43 119 107/52 04/03/17 16:00 97.7 119 22 107/52 93 Room Air 04/03/17 15:44 126 04/03/17 15:33 Nasal Cannula 3.0 04/03/17 15:33 Nasal Cannula 3.0 04/03/17 12:00 97.5 123 22 105/59 95 Nasal Cannula 5.0 04/03/17 11:52 119 04/03/17 11:26 93 18 99 Nasal Cannula 3.0 04/03/17 11:16 107 20 97 Nasal Cannula 3.0 04/03/17 08:00 111 04/03/17 08:00 97.7 114 20 102/61 96 Nasal Cannula 3.0 04/03/17 07:45 110 20 99 Nasal Cannula 3.0 04/03/17 07:33 Nasal Cannula 3.0 04/03/17 07:33 110 19 96 Nasal Cannula 3.0 04/03/17 07:32 96 Nasal Cannula 3.0 Intake and Output 04/03/17 04/04/17 19:00 07:00 Intake Total 854.6 ml 1004.916 ml Output Total 425 ml 250 ml Balance 429.6 ml 754.916 ml Intake IV Total 604.6 ml 754.916 ml Blood Product 250 ml 250 ml Output Urine Total 425 ml 250 ml General Appearance: WD/WN HEENT: atraumatic Respiratory/Chest: rhonchi Cardiovascular: normal rate, regular rhythm Abdomen: soft, non tender, non distended Extremities: no cyanosis Skin: no rash Neurologic/Psychiatric: normal mood/affect, disoriented Musculoskeletal: normal muscle bulk Microbiology Date/Time Source Procedure Growth Status 04/02/17 17:00 Urine,Clean Catch Urine Culture - Preliminary NO GROWTH Resulted Laboratory Tests 04/04/17 05:40: White Blood Count 6.6, Red Blood Count 3.23L, Hemoglobin 9.2L, Hematocrit 28.3L , Mean Corpuscular Volume 88, Mean Corpuscular Hemoglobin 28.5, Mean Corpuscular Hemoglobin Concent 32.5, Red Cell Distribution Width 16.5H, Platelet Count 88L, Mean Platelet Volume 5.7L, Neutrophils (%) (Auto) , Lymphocytes (%) (Auto) , Monocytes (%) (Auto) , Eosinophils (%) (Auto) , Basophils (%) (Auto) , Neutrophils % (Manual) [Pending], Lymphocytes % (Manual) [Pending], Platelet Estimate [Pending], Platelet Morphology [Pending], Sodium Level [Pending], Potassium Level [Pending], Chloride Level [Pending], Carbon Dioxide Level [Pending], Blood Urea Nitrogen [Pending], Creatinine [Pending], Estimat Glomerular Filtration Rate [Pending], Glucose Level [Pending], Calcium Level [Pending] Current Medications Medications (Trade) Dose Ordered Sig/Salvatore Route PRN Reason Start Time Stop Time Status Last Admin Dose Admin Albuterol/ Ipratropium (DuoNeb 0.5-3(2.5)mg/3ml) 3 ml Q4HRT HHN 04/02/17 19:00 04/07/17 18:59 04/04/17 03:04 Dextrose STAT PRN IV Hypoglycemia 04/03/17 08:00 05/03/17 07:59 Dextrose/Sodium Chloride (D5ns) 1,000 ml @ 40 mls/hr Q24H IV 04/03/17 15:00 05/03/17 14:59 04/03/17 21:17 Insulin Aspart (NovoLOG) BEFORE MEALS AND HS SUBQ 04/03/17 11:30 05/03/17 11:29 04/03/17 17:10 Metoprolol Tartrate (Lopressor) 25 mg Q12HR ORAL 04/03/17 18:45 05/03/17 18:44 04/03/17 18:43 Pantoprazole (Protonix) 40 mg DAILY IVP 04/03/17 09:00 05/03/17 08:59 04/03/17 11:01 Piperacillin Sod/ Tazobactam Sod 3.375 gm/Dextrose 110 ml @ 27.5 mls/hr Q8HR IVPB 04/03/17 22:00 04/10/17 21:59 04/04/17 05:20 Vancomycin HCl (Vanco rx to dose) 1 ea DAILY PRN MISC Per rx protocol 04/02/17 16:30 05/02/17 16:29 Vancomycin HCl 1 gm/Dextrose 275 ml @ 183.708 mls/hr Q24H IVPB 04/03/17 20:00 04/08/17 19:59 04/03/17 21:14 VARUN PHAN DO Apr 04, 2017 06:51
[2017-04-04 08:00] VITALS: BP 114/60
[2017-04-04] MEDS: Pantoprazole Inj IVP SCH (08:27)
[2017-04-04] MEDS: Metoprolol 25mg tab ORAL SCH ×2 (08:28→20:51)
[2017-04-04 09:04] LABS: BAND NEUTROPHILS % (MANUAL) 6 % (0-8); LYMPHOCYTES % (MANUAL) 11 % (20-45); NEUTROPHILS % (MANUAL) 75 % (45-75); TOTAL CELLS COUNTED 100
[2017-04-04 09:06] LABS: BASOPHILS % (MANUAL) 0 % (0-2); EOSINOPHILS % (MANUAL) 0 % (0-3); PLATELET ESTIMATE DECREASED; PLATELET MORPHOLOGY NORMAL
[2017-04-04 09:07] LABS: ANISOCYTOSIS 1+; HYPOCHROMASIA 1+
[2017-04-04] MEDS ORDERED: Acetaminophen 650 MG SUPP RECTAL PRN (10:45)
[2017-04-04 12:00] VITALS: BP 105/52
--- NOTE | 2017-04-04 12:53 | Diagnostic Imaging Report ---
APPROVED REPORT CPT Code: 35387 Present Symptoms Shortness of breath BILATERAL: Imaging reveals a patent deep venous system bilaterally. There is no evidence of thrombus within the femoral, popliteal or tibial segments. The greater saphenous veins are also within normal limits. Doppler indicates normal spontaneous flow within these segments.
--- NOTE | 2017-04-04 14:44 | Nephrology Progress Note ---
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 (5) Hypotension (6) Renal cyst (7) CKD (chronic kidney disease) stage 3, GFR 30-59 ml/min (8) YVETTE (acute kidney injury) Plan reduce iv fluids, empiric atb for possible sepsis, still npo as dysphagia Subjective ROS Limited/Unobtainable: Yes Objective Objective Last 24 Hour Vital Signs Date Time Temp Pulse Resp B/P Pulse Ox O2 Delivery O2 Flow Rate FiO2 04/04/17 14:38 99.3 04/04/17 12:00 99.3 117 22 105/52 96 Nasal Cannula 2.0 04/04/17 12:00 115 04/04/17 10:42 110 18 99 Nasal Cannula 3.0 04/04/17 10:32 110 20 98 Nasal Cannula 3.0 32 04/04/17 08:28 109 114/60 04/04/17 08:00 99.1 123 23 114/60 97 Nasal Cannula 3.0 04/04/17 08:00 114 04/04/17 07:12 110 18 99 Nasal Cannula 3.0 04/04/17 07:02 98 Nasal Cannula 3.0 32 04/04/17 07:02 109 20 98 Nasal Cannula 3.0 32 04/04/17 07:02 Nasal Cannula 3.0 32 04/04/17 04:00 106 04/04/17 04:00 98.2 81 18 130/75 98 Nasal Cannula 3.0 04/04/17 03:14 111 18 99 Nasal Cannula 3.0 04/04/17 03:05 111 19 98 Nasal Cannula 3.0 04/04/17 00:00 104 04/04/17 00:00 98.1 100 18 152/70 99 Nasal Cannula 3.0 04/03/17 23:29 110 18 99 Nasal Cannula 3.0 04/03/17 23:24 106 17 99 Nasal Cannula 3.0 04/03/17 20:00 97.9 80 18 116/70 97 Nasal Cannula 3.0 04/03/17 20:00 99 04/03/17 19:06 114 18 99 Nasal Cannula 3.0 04/03/17 19:01 108 18 98 Nasal Cannula 3.0 04/03/17 19:01 Nasal Cannula 3.0 04/03/17 19:01 98 Nasal Cannula 4.0 04/03/17 18:43 119 107/52 04/03/17 16:00 97.7 119 22 107/52 93 Room Air 04/03/17 15:44 126 04/03/17 15:33 Nasal Cannula 3.0 04/03/17 15:33 Nasal Cannula 3.0 Intake and Output 04/03/17 04/04/17 19:00 07:00 Intake Total 854.6 ml 1072.416 ml Output Total 425 ml 250 ml Balance 429.6 ml 822.416 ml Intake IV Total 604.6 ml 822.416 ml Blood Product 250 ml 250 ml Output Urine Total 425 ml 250 ml Laboratory Tests 04/04/17 05:40: White Blood Count 6.6, Red Blood Count 3.23L, Hemoglobin 9.2L, Hematocrit 28.3L , Mean Corpuscular Volume 88, Mean Corpuscular Hemoglobin 28.5, Mean Corpuscular Hemoglobin Concent 32.5, Red Cell Distribution Width 16.5H, Platelet Count 88L, Mean Platelet Volume 5.7L, Neutrophils (%) (Auto) , Lymphocytes (%) (Auto) , Monocytes (%) (Auto) , Eosinophils (%) (Auto) , Basophils (%) (Auto) , Differential Total Cells Counted 100, Neutrophils % ( Manual) 75, Lymphocytes % (Manual) 11L, Monocytes % (Manual) 8, Eosinophils % ( Manual) 0, Basophils % (Manual) 0, Band Neutrophils 6, Platelet Estimate DecreasedL, Platelet Morphology Normal, Hypochromasia 1+, Anisocytosis 1+, Sodium Level 144, Potassium Level 3.7, Chloride Level 111H, Carbon Dioxide Level 19L, Anion Gap 14, Blood Urea Nitrogen 42H, Creatinine 1.3H, Estimat Glomerular Filtration Rate , Glucose Level 158H, Calcium Level 9.2 Height (Feet): 5 Height (Inches): 10.00 Weight (Pounds): 200 General Appearance: confused, mild distress EENT: normal ENT inspection Neck: normal alignment Cardiovascular: normal rate Respiratory/Chest: rhonchi - bilaterally Abdomen: soft, decreased bowel sounds, distended Extremities: other - trace edema 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
[2017-04-04] MEDS: D5 1/4NS 1000ml 1,000 ML IV SCH (15:12)
[2017-04-04 16:00] VITALS: BP 107/66
[2017-04-04] MEDS ORDERED: NS 275ml ONE (16:07)
[2017-04-04] MEDS ORDERED: Tubing IV Secondary IV ONE (16:07)
[2017-04-04] MEDS ORDERED: Tubing Blood Filter IV ONE (16:07)
[2017-04-04] MEDS ORDERED: D5NS 1000ml IV ONE (16:07)
[2017-04-04 16:40] LABS: SODIUM 24 HR URINE (MEQ/24HR) 40 MEQ/24HR (40-200); SODIUM 24 HR URINE (MEQ/L) 50 MEQ/L
[2017-04-04 20:00] VITALS: BP 109/52
[2017-04-04] MEDS: Vancomycin 1 GM in D5W 275 ML IVPB SCH (20:21)
--- NOTE | 2017-04-04 23:00 | Progress Note ---
DATE: 04/04/2017 CARDIOLOGY PROGRESS NOTE: SUBJECTIVE: The patient is more alert and less withdrawn. He remains on IV fluids. Blood pressure parameters have improved. OBJECTIVE: VITAL SIGNS: Blood pressure is 102/61 to 130/75, heart rate 81 to 126, respiratory rate 18 to 22, and he is afebrile. LUNGS: Few rhonchi. CARDIAC: Regular rhythm and rate. Normal S1 and S2. ABDOMEN: Soft. EXTREMITIES: No edema. LABORATORY DATA: White count is 6.6 and hemoglobin 9.2. Sodium is 144, potassium 3.7, bicarbonate 19, BUN 42, and creatinine 1.3. IMPRESSION: 1. Sepsis with shock recovering. 2. Dysphagia. 3. Metabolic and toxic encephalopathy. 4. Anemia. 5. Acute renal failure. 6. Acute and chronic diastolic congestive heart failure. 7. Metastatic prostate cancer. 8. Metabolic acidosis. 9. Secondary sinus tachycardia. PLAN: Taper intravenous fluids. Continue antibiotics. NPO in view of dysphagia. Add beta-pretty. Monitor cardiorenal parameters and volume status. John Raza M.D. DR: Va JOB#: [id number] CC:
[2017-04-05] VITALS (8 sets, daily range): BP systolic 103–109; BP diastolic 58–74
[2017-04-05] MEDS: DuoNeb 0.5-3(2.5)mg/3ml neb HHN SCH ×6 (02:58→23:19)
[2017-04-05 05:03] LABS: MEAN CORPUSCULAR HEMOGLOBIN 28.4 PG (27.0-31.0); MEAN CORPUSCULAR HGB CONC 32.2 G/DL (32.0-36.0); MEAN CORPUSCULAR VOLUME 88 FL (80-99); MEAN PLATELET VOLUME 5.6 FL (6.5-10.1); PLATELET COUNT 70 K/UL (150-450); RED BLOOD COUNT 3.29 M/UL (4.70-6.10); RED CELL DISTRIBUTION WIDTH 16.4 % (11.6-14.8); WHITE BLOOD COUNT 7.7 K/UL (4.8-10.8)
[2017-04-05] MEDS: Metoprolol 25mg tab ORAL SCH ×3 (06:00→21:57)
[2017-04-05] MEDS: Zosyn 3.375gm q8h **Extended infusion IVPB SCH ×6 (06:13→22:00)
[2017-04-05] MEDS: NovoLOG Insulin Flexpen SUBQ SCH ×4 (06:14→20:39)
[2017-04-05] MEDS: Pantoprazole Inj IVP SCH (10:25)
[2017-04-05] MEDS ORDERED: D5 1/2NS 1000ml IV ONE (11:04)
--- NOTE | 2017-04-05 11:25 | Nephrology Progress Note ---
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0 32 04/05/17 07:19 110 18 97 Nasal Cannula 3.0 32 04/05/17 07:19 110 18 97 Nasal Cannula 3.0 32 04/05/17 06:00 98 104/61 04/05/17 04:00 119 04/05/17 04:00 99.0 113 24 103/58 98 Nasal Cannula 3.0 04/05/17 03:08 109 20 100 Nasal Cannula 3.0 32 04/05/17 02:59 108 20 98 Nasal Cannula 3.0 32 04/05/17 00:22 98.9 111 24 108/63 99 Nasal Cannula 3.0 04/05/17 00:00 105 04/04/17 23:31 104 20 100 Nasal Cannula 3.0 32 04/04/17 23:22 103 20 96 Nasal Cannula 3.0 32 04/04/17 20:51 103 109/52 04/04/17 20:00 98 04/04/17 20:00 97.5 101 18 109/52 100 Nasal Cannula 2.0 04/04/17 19:23 102 18 98 Nasal Cannula 3.0 32 04/04/17 19:15 101 18 97 Nasal Cannula 3.0 32 04/04/17 19:15 97 Nasal Cannula 3.0 32 04/04/17 19:15 Nasal Cannula 3.0 32 04/04/17 16:00 99.0 108 19 107/66 97 Nasal Cannula 2.0 04/04/17 16:00 110 04/04/17 14:51 112 18 99 Nasal Cannula 3.0 04/04/17 14:41 107 20 98 Nasal Cannula 3.0 32 04/04/17 14:38 99.3 04/04/17 12:00 99.3 117 22 105/52 96 Nasal Cannula 2.0 04/04/17 12:00 115 Intake and Output 04/04/17 04/05/17 19:00 07:00 Intake Total 565.00 ml 766.50 ml Output Total 250 ml 700 ml Balance 315.00 ml 66.50 ml Intake IV Total 565.00 ml 766.50 ml Output Urine Total 250 ml 700 ml Laboratory Tests 04/04/17 18:45: Vancomycin Level Trough 15.0H 04/05/17 04:20: White Blood Count 7.7, Red Blood Count 3.29L, Hemoglobin 9.3L, Hematocrit 29.1L , Mean Corpuscular Volume 88, Mean Corpuscular Hemoglobin 28.4, Mean Corpuscular Hemoglobin Concent 32.2, Red Cell Distribution Width 16.4H, Platelet Count 70L, Mean Platelet Volume 5.6L, Neutrophils (%) (Auto) , Lymphocytes (%) (Auto) , Monocytes (%) (Auto) , Eosinophils (%) (Auto) , Basophils (%) (Auto) Height (Feet): 5 Height (Inches): 10.00 Weight (Pounds): 200 General Appearance: alert, confused EENT: normal ENT inspection Neck: normal alignment Cardiovascular: normal rate Respiratory/Chest: lungs clear Abdomen: soft, decreased bowel sounds, distended Extremities: trace edema Neurologic: disoriented JADA HARO Apr 05, 2017 11:25
[2017-04-05] MEDS: D5 1/4NS 1000ml 1,000 ML IV SCH (16:23)
[2017-04-05] MEDS: Vancomycin 1 GM in D5W 275 ML IVPB SCH (20:00)
--- NOTE | 2017-04-05 21:24 | Pulmonology Progress Note ---
Assessment/Plan Assessment/Plan 1. Sepsis with shock, improved. 2. Pneumonia with hypoxemic respiratory failure. 3. Metastatic prostate cancer with indwelling Bella catheter due to urinary retention and hematuria. 4. Coronary heart disease, status post bypass surgery. 5. Dehydration with acute kidney injury. 6. Chronic kidney disease stage 3. 7. Hypertension, now hypotensive. 8. Possible congestive heart failure with elevated proBNP. 9. Hyperlipidemia. 10. Thrombocytopenia likely due to sepsis. 11. Anemia PLAN: Continue fluids Antibiotics will be administered as well as respiratory treatments. urine dip positive, culture negative thus far Consider transfusion nebs and suction NPO until mentation improves FU labs Subjective ROS Limited/Unobtainable: Yes Allergies: Coded Allergies: FISH OIL (Verified Allergy, Unknown, 04/02/17) SULFA (SULFONAMIDE ANTIBIOTICS) (Verified Allergy, Unknown, 04/02/17) Subjective no changed from yesterday pt confused no distress, some bleeding in the catheter no reports of cp nv or fever does not get oob remains on o2 remains NPO at this time due to confusion and high risk of aspiration./ Objective Last 24 Hour Vital Signs Date Time Temp Pulse Resp B/P Pulse Ox O2 Delivery O2 Flow Rate FiO2 04/05/17 20:00 98.6 117 20 106/70 98 Nasal Cannula 2.0 04/05/17 20:00 123 04/05/17 19:46 122 18 97 Nasal Cannula 3.0 32 04/05/17 19:38 97 Nasal Cannula 3.0 32 04/05/17 19:38 Nasal Cannula 3.0 32 04/05/17 19:38 111 18 97 Nasal Cannula 3.0 32 04/05/17 16:00 97.8 122 20 104/74 96 Nasal Cannula 3.0 04/05/17 16:00 111 04/05/17 15:42 105 109/72 04/05/17 14:57 105 18 97 Nasal Cannula 3.0 32 04/05/17 14:47 105 18 97 Nasal Cannula 3.0 32 04/05/17 12:55 99.0 112 20 109/72 98 Nasal Cannula 3.0 04/05/17 12:00 99.0 112 20 109/72 98 Nasal Cannula 3.0 04/05/17 11:40 111 04/05/17 11:03 109 18 97 Nasal Cannula 3.0 32 04/05/17 10:58 108 18 97 Nasal Cannula 3.0 32 04/05/17 09:00 98.6 113 18 105/64 100 Nasal Cannula 2.0 04/05/17 08:00 98.6 113 18 105/64 96 Nasal Cannula 3.0 04/05/17 08:00 111 04/05/17 07:19 Nasal Cannula 3.0 32 04/05/17 07:19 97 Nasal Cannula 3.0 32 04/05/17 07:19 110 18 97 Nasal Cannula 3.0 32 04/05/17 07:19 110 18 97 Nasal Cannula 3.0 32 04/05/17 06:00 98 104/61 04/05/17 04:00 119 04/05/17 04:00 99.0 113 24 103/58 98 Nasal Cannula 3.0 04/05/17 03:08 109 20 100 Nasal Cannula 3.0 32 04/05/17 02:59 108 20 98 Nasal Cannula 3.0 32 04/05/17 00:22 98.9 111 24 108/63 99 Nasal Cannula 3.0 04/05/17 00:00 105 04/04/17 23:31 104 20 100 Nasal Cannula 3.0 32 04/04/17 23:22 103 20 96 Nasal Cannula 3.0 32 Intake and Output 04/04/17 04/05/17 19:00 07:00 Intake Total 565.00 ml 766.50 ml Output Total 250 ml 700 ml Balance 315.00 ml 66.50 ml Intake IV Total 565.00 ml 766.50 ml Output Urine Total 250 ml 700 ml General Appearance: WD/WN Respiratory/Chest: rhonchi Cardiovascular: normal rate, regular rhythm Abdomen: soft, non tender, no organomegaly Skin: no rash, no lesions Neurologic/Psychiatric: disoriented Lymphatic: no neck adenopathy Laboratory Tests 04/05/17 04:20: White Blood Count 7.7, Red Blood Count 3.29L, Hemoglobin 9.3L, Hematocrit 29.1L , Mean Corpuscular Volume 88, Mean Corpuscular Hemoglobin 28.4, Mean Corpuscular Hemoglobin Concent 32.2, Red Cell Distribution Width 16.4H, Platelet Count 70L, Mean Platelet Volume 5.6L, Neutrophils (%) (Auto) , Lymphocytes (%) (Auto) , Monocytes (%) (Auto) , Eosinophils (%) (Auto) , Basophils (%) (Auto) Current Medications Medications (Trade) Dose Ordered Sig/Salvatore Route PRN Reason Start Time Stop Time Status Last Admin Dose Admin Acetaminophen 650 mg 650 mg Q4H PRN ORAL For Pain 04/04/17 11:00 05/04/17 10:59 04/04/17 13:39 Albuterol/ Ipratropium (DuoNeb 0.5-3(2.5)mg/3ml) 3 ml Q4HRT HHN 04/02/17 19:00 04/07/17 18:59 04/05/17 19:36 Dextrose STAT PRN IV Hypoglycemia 04/03/17 08:00 05/03/17 07:59 Dextrose/Sodium Chloride (D5 0.2%NS 1000ml) 1,000 ml @ 30 mls/hr Q24H IV 04/04/17 15:30 05/04/17 15:29 04/05/17 16:23 Insulin Aspart (NovoLOG) BEFORE MEALS AND HS SUBQ 04/03/17 11:30 05/03/17 11:29 04/05/17 06:14 Metoprolol Tartrate (Lopressor) 25 mg EVERY 8 HOURS ORAL 04/05/17 06:00 05/05/17 05:59 04/05/17 15:42 Pantoprazole (Protonix) 40 mg DAILY IVP 04/03/17 09:00 05/03/17 08:59 04/05/17 10:25 Piperacillin Sod/ Tazobactam Sod 3.375 gm/Dextrose 110 ml @ 27.5 mls/hr Q8HR IVPB 04/03/17 22:00 04/10/17 21:59 04/05/17 15:39 Vancomycin HCl (Vanco rx to dose) 1 ea DAILY PRN MISC Per rx protocol 04/02/17 16:30 05/02/17 16:29 Vancomycin HCl/ Dextrose (Vancomycin/D5W) 275 ml @ 183.708 mls/hr Q24H IVPB 04/03/17 20:00 04/08/17 19:59 04/05/17 20:00 VARUN PHAN DO Apr 05, 2017 21:24
[2017-04-06] VITALS: BP 109/70
[2017-04-06] MEDS ORDERED: D5 1/4NS 1000ml 1,000 ML IV SCH (01:45)
[2017-04-06] MEDS: DuoNeb 0.5-3(2.5)mg/3ml neb HHN SCH ×2 (03:58→08:10)
[2017-04-06 04:00] VITALS: BP 114/70
--- NOTE | 2017-04-06 04:01 | Progress Note ---
DATE: 04/05/2017 SUBJECTIVE: Condition remains critical. Prognosis guarded because the patient remains bedbound. He is on oxygen. He remains NPO due to confusion and aspiration risk. He has not had any complaints of chest pain or shortness of breath. No nausea or vomiting. He has had minimal bleeding from his urinary catheter. OBJECTIVE: VITAL SIGNS: Blood pressure 106/70, pulse 117, and respirations 20. No fevers. Monitored rhythm. Sinus tachycardia. LUNGS: Bilateral breath sounds. Scattered rhonchi. No accessory muscle use. HEART: Regular rhythm. Rapid rate. Normal S1 and S2. ABDOMEN: Soft. EXTREMITIES: Trace edema. LABORATORY AND DIAGNOSTIC DATA: White count 7.7, hemoglobin 9.3. Sodium 144, potassium 3.7, chloride 111, bicarb 19, BUN 42, and creatinine 1.3. Venous duplex scan on 04/03/2017 was negative for DVT in both lower extremities. IMPRESSION: 1. Sepsis with shock recovering. 2. Pneumonia with respiratory failure and hypoxia. 3. Metastatic prostate cancer with indwelling Bella. 4. Coronary artery disease with prior coronary artery bypass graft surgery. 5. Acute myocardial ischemia, improved 6. Hypovolemia and dehydration, improving. 7. Hypertensive heart disease now with low range blood pressure due to sepsis. 8. Acute on chronic diastolic congestive heart failure. 9. Anemia. PLAN: Consider discontinuing beta agonist therapy. Transfuse for hemoglobin less than 8 g. Add beta-pretty once blood pressure stabilizes. Antimicrobials, DVT prophylaxis, and respiratory hygiene. Continue Bella catheter due to urinary retention. John Raza M.D. DR: CHAU JOB#: [id number] CC:
--- NOTE | 2017-04-06 04:01 | Consultation ---
DATE OF CONSULTATION: 04/02/2017 CARDIOLOGY CONSULTATION CONSULTING PHYSICIAN: John Raza M.D. REQUESTING PHYSICIAN: Joni Mai M.D. REASON FOR CONSULTATION: Hypotension in the setting of sepsis and ischemic heart disease. HISTORY OF PRESENT ILLNESS: This is an 86-year-old white male. He has a Bella catheter due to metastatic prostate cancer and chronic urinary retention. He has [facility] residing at a [facility]. He has been on antibiotics for pneumonia. Today, he became poorly responsive and hypotensive and was transferred to this emergency room by paramedics. In the emergency room, he was noted to be hypotensive and given fluid resuscitation with some improvement. The patient is alert and interactive, but withdrawn and lethargic. 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 CODE: Full code. MEDICATIONS: Medications at the prison, reviewed and reconciled. ALLERGIES: Sulfa. FAMILY HISTORY: Noncontributory. SOCIAL HISTORY: No history of smoking, alcohol, or substance abuse. REVIEW OF SYSTEMS: Cannot be reliably obtained from the patient. A 20 minutes were spent reviewing prior prison records and the pertinent data is as outlined above. PHYSICAL EXAMINATION: GENERAL: The patients' exam reveals him to be alert, withdrawn, lethargic, and answering quite simple questions only with one to two-word answers. VITAL SIGNS: Blood pressure 87/52, pulse 125, respirations 18, and afebrile. Oxygen saturation on room air was 88%. SKIN: Dry. No rash or decubitus. HEENT: Temporal wasting. Pale conjunctivae. Oropharynx clear. Mucous membranes dry. NECK: Supple. Jugular venous pressure. LUNGS: Normal lungs with coarse breath sounds and rhonchi with signs of accessory muscle use. CARDIAC: Regular rhythm. Rapid rate. Normal S1 and S2 with a fourth heart sound. ABDOMEN: Soft and nontender. There is no hepatomegaly. There is a small umbilical hernia. There is a urinary catheter in place. EXTREMITIES: Reveal no edema. Symmetric strength of the extremities and decreased capillary refill noted. LABORATORY DATA: White count 10.5 and hemoglobin 8.2. Lactic acid 2.3. Troponin negative. Pro-natriuretic peptide is 3200. Albumin 2.5. Chest x-ray, right lower lobe infiltrate. Sodium 136, potassium 4.8, bicarb 21, BUN 48, creatinine 2.0, and glucose 142. EKG revealed sinus tachycardia with nonspecific ST change. IMPRESSION: 1. Sepsis with shock. 2. Hypovolemia. 3. Acute myocardial ischemia. 4. Healthcare-acquired pneumonia. 5. Dehydration. 6. Hypovolemia. 7. Acute and chronic diastolic congestive heart failure. 8. Anemia. 9. Sepsis. 10. Ischemic cardiomyopathy with prior coronary artery bypass graft. 11. Urinary tract infection with indwelling Bella catheter. PLAN: 1. Volume resuscitation. 2. No diuretics. 3. Hold beta-pretty for low blood pressure. 4. Antimicrobials. 5. Respiratory hygiene. 6. Bella catheter. 7. DVT prophylaxis. 8. Monitor hemoglobin. Transfuse if less than 8 g. 9. Bronchodilators with cautious use of albuterol and beta agonist in the setting of tachycardia. 10. Further recommendations will follow. 11. We will obtain echocardiogram and we will review follow up laboratory studies. John Raza M.D. DR: GO JOB#: [id number] CC:
[2017-04-06] MEDS ORDERED: Metoprolol 25mg tab ORAL SCH (06:00)
[2017-04-06] MEDS: Piperacillin/Tazobactam 3.375 GM in D5W 110 ML IVPB SCH ×2 (06:30→13:26)
[2017-04-06] MEDS: NovoLOG Insulin Flexpen SUBQ SCH ×3 (06:30→16:30)
[2017-04-06 07:40] LABS: MEAN CORPUSCULAR HEMOGLOBIN 29.1 PG (27.0-31.0); MEAN CORPUSCULAR HGB CONC 33.1 G/DL (32.0-36.0); MEAN CORPUSCULAR VOLUME 88 FL (80-99); MEAN PLATELET VOLUME 6.3 FL (6.5-10.1); PLATELET COUNT 58 K/UL (150-450); RED BLOOD COUNT 3.15 M/UL (4.70-6.10); WHITE BLOOD COUNT 7.5 K/UL (4.8-10.8)
[2017-04-06 08:00] VITALS: BP 103/66
[2017-04-06 08:10] LABS: MAGNESIUM 1.8 mg/dL (1.7-2.5)
[2017-04-06] MEDS: Metoprolol 50mg tab ORAL SCH ×2 (08:33→09:00)
[2017-04-06 08:53] LABS: ANION GAP 15 (5-15); CARBON DIOXIDE 21 mEQ/L (20-30); CHLORIDE 107 mEQ/L (98-107); CREATININE 1.5 mg/dL (0.7-1.2); HEMOLYSIS 1; POTASSIUM 3.4 mEQ/L (3.4-4.9); SODIUM 143 mEQ/L (135-145)
[2017-04-06] MEDS ORDERED: Ipratropium 0.02% Inh Soln 2.5ml UD HHN PRN (09:00)
[2017-04-06] MEDS ORDERED: Pantoprazole Inj IVP SCH (09:00)
[2017-04-06 09:33] LABS: BAND NEUTROPHILS % (MANUAL) 1 % (0-8); EOSINOPHILS % (MANUAL) 1 % (0-3); LYMPHOCYTES % (MANUAL) 9 % (20-45); NEUTROPHILS % (MANUAL) 78 % (45-75); TOTAL CELLS COUNTED 100
[2017-04-06 09:34] LABS: BASOPHILS % (MANUAL) 0 % (0-2); PLATELET ESTIMATE DECREASED
[2017-04-06 09:35] LABS: ANISOCYTOSIS 1+; PLATELET MORPHOLOGY NORMAL
[2017-04-06 12:00] VITALS: BP 103/66
--- NOTE | 2017-04-06 12:15 | Diagnostic Imaging Report ---
Indication: Cough Technique: One view of the chest Comparison: 04/03/2017 Findings: Less optimal inspiration with increasing atelectasis at the right lung base is noted. There is also generalized volume loss in the right lung, with crowding of the vascular markings. The left lung and pleural space remain clear. Prior CABG. Again demonstrated is generalized osteosclerosis. Previously demonstrated interstitial congestion is no longer evident. Impression: Improved interstitial congestion Increasing right basilar atelectasis and generalized right lung volume loss Other stable findings as described
[2017-04-06 16:00] VITALS: BP 96/62
--- NOTE | 2017-04-06 16:32 | Nephrology Progress Note ---
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 (5) Hypotension (6) Renal cyst (7) CKD (chronic kidney disease) stage 3, GFR 30-59 ml/min (8) YVETTE (acute kidney injury) Plan reduce iv fluids, empiric atb for possible sepsis,cultures negative so far consider dc soon, still npo as dysphagia, cxr better but still atelectasis, expect rise in bun and creatinine with limited fluids but need to avoid chf Subjective ROS Limited/Unobtainable: Yes Objective Objective Last 24 Hour Vital Signs Date Time Temp Pulse Resp B/P Pulse Ox O2 Delivery O2 Flow Rate FiO2 04/06/17 12:00 98.2 110 20 103/66 94 Room Air 04/06/17 08:16 118 22 97 Nasal Cannula 04/06/17 08:13 118 22 97 Nasal Cannula 3.0 04/06/17 08:13 Nasal Cannula 3.0 04/06/17 08:12 97 Nasal Cannula 3.0 04/06/17 08:00 112 04/06/17 08:00 97.5 112 20 103/66 99 Nasal Cannula 2.0 04/06/17 04:03 112 20 95 Nasal Cannula 32 04/06/17 04:00 114 04/06/17 04:00 98.2 113 19 114/70 99 Nasal Cannula 3.5 04/06/17 03:58 110 21 97 Nasal Cannula 3.0 32 04/06/17 01:42 115 04/06/17 00:00 98.2 116 20 109/70 97 Nasal Cannula 2.0 04/06/17 00:00 116 04/05/17 23:29 110 20 95 Nasal Cannula 3.0 32 04/05/17 23:21 107 19 98 Nasal Cannula 3.0 32 04/05/17 21:57 109 100/70 04/05/17 20:00 98.6 117 20 106/70 98 Nasal Cannula 2.0 04/05/17 20:00 123 04/05/17 19:46 122 18 97 Nasal Cannula 3.0 32 04/05/17 19:38 97 Nasal Cannula 3.0 32 04/05/17 19:38 Nasal Cannula 3.0 32 04/05/17 19:38 111 18 97 Nasal Cannula 3.0 32 Intake and Output 04/05/17 04/06/17 19:00 07:00 Intake Total 470 ml 837.416 ml Output Total 350 ml 850 ml Balance 120 ml -12.584 ml Intake IV Total 470 ml 837.416 ml Output Urine Total 350 ml 850 ml Laboratory Tests 04/06/17 06:20: White Blood Count 7.5, Red Blood Count 3.15L, Hemoglobin 9.2L, Hematocrit 27.7L , Mean Corpuscular Volume 88, Mean Corpuscular Hemoglobin 29.1, Mean Corpuscular Hemoglobin Concent 33.1, Red Cell Distribution Width 17.0H, Platelet Count 58L, Mean Platelet Volume 6.3L, Neutrophils (%) (Auto) , Lymphocytes (%) (Auto) , Monocytes (%) (Auto) , Eosinophils (%) (Auto) , Basophils (%) (Auto) , Differential Total Cells Counted 100, Neutrophils % ( Manual) 78H, Lymphocytes % (Manual) 9L, Monocytes % (Manual) 11H, Eosinophils % (Manual) 1, Basophils % (Manual) 0, Band Neutrophils 1, Platelet Estimate DecreasedL, Platelet Morphology Normal, Anisocytosis 1+, Sodium Level 143, Potassium Level 3.4, Chloride Level 107, Carbon Dioxide Level 21, Anion Gap 15, Blood Urea Nitrogen 44H, Creatinine 1.5H, Estimat Glomerular Filtration Rate , Glucose Level 116H, Calcium Level 10.0, Magnesium Level 1.8, Pro-B-Type Natriuretic Peptide 4086H Height (Feet): 5 Height (Inches): 10.00 Weight (Pounds): 200 General Appearance: lethargic, confused EENT: normal ENT inspection Neck: normal alignment Cardiovascular: normal rate Respiratory/Chest: rhonchi - bilaterally Abdomen: non tender, distended Extremities: trace edema JADA HARO Apr 06, 2017 16:32
--- NOTE | 2017-04-06 17:15 | Pulmonology Progress Note ---
Assessment/Plan Assessment/Plan (1) Anemia in chronic kidney disease (2) Dysphagia (3) CHF (congestive heart failure), NYHA class III (4) Prostate cancer metastatic to bone (5) Hypotension (6) Renal cyst (7) CKD (chronic kidney disease) stage 3, GFR 30-59 ml/min (8) YVETTE (acute kidney injury) refusing all meds NPO due to aspiration awake but mumbles no family to make decisions [facility] social service and returned case inspector stable for transfer to [facility] MD needs PEG or comfort care requested bioethics consult Subjective ROS Limited/Unobtainable: Yes Constitutional: Denies: fever Allergies: Coded Allergies: FISH OIL (Verified Allergy, Unknown, 04/02/17) SULFA (SULFONAMIDE ANTIBIOTICS) (Verified Allergy, Unknown, 04/02/17) Objective Last 24 Hour Vital Signs Date Time Temp Pulse Resp B/P Pulse Ox O2 Delivery O2 Flow Rate FiO2 04/06/17 16:00 98.4 105 19 96/62 95 Room Air 04/06/17 12:00 98.2 110 20 103/66 94 Room Air 04/06/17 08:16 118 22 97 Nasal Cannula 04/06/17 08:13 118 22 97 Nasal Cannula 3.0 04/06/17 08:13 Nasal Cannula 3.0 04/06/17 08:12 97 Nasal Cannula 3.0 04/06/17 08:00 112 04/06/17 08:00 97.5 112 20 103/66 99 Nasal Cannula 2.0 04/06/17 04:03 112 20 95 Nasal Cannula 32 04/06/17 04:00 114 04/06/17 04:00 98.2 113 19 114/70 99 Nasal Cannula 3.5 04/06/17 03:58 110 21 97 Nasal Cannula 3.0 32 04/06/17 01:42 115 04/06/17 00:00 98.2 116 20 109/70 97 Nasal Cannula 2.0 04/06/17 00:00 116 04/05/17 23:29 110 20 95 Nasal Cannula 3.0 32 04/05/17 23:21 107 19 98 Nasal Cannula 3.0 32 04/05/17 21:57 109 100/70 04/05/17 20:00 98.6 117 20 106/70 98 Nasal Cannula 2.0 04/05/17 20:00 123 04/05/17 19:46 122 18 97 Nasal Cannula 3.0 32 04/05/17 19:38 97 Nasal Cannula 3.0 32 04/05/17 19:38 Nasal Cannula 3.0 32 04/05/17 19:38 111 18 97 Nasal Cannula 3.0 32 Intake and Output 04/05/17 04/06/17 19:00 07:00 Intake Total 470 ml 837.416 ml Output Total 350 ml 850 ml Balance 120 ml -12.584 ml Intake IV Total 470 ml 837.416 ml Output Urine Total 350 ml 850 ml General Appearance: no acute distress Respiratory/Chest: rhonchi Cardiovascular: normal rate Abdomen: soft, non tender Laboratory Tests 04/06/17 06:20: White Blood Count 7.5, Red Blood Count 3.15L, Hemoglobin 9.2L, Hematocrit 27.7L , Mean Corpuscular Volume 88, Mean Corpuscular Hemoglobin 29.1, Mean Corpuscular Hemoglobin Concent 33.1, Red Cell Distribution Width 17.0H, Platelet Count 58L, Mean Platelet Volume 6.3L, Neutrophils (%) (Auto) , Lymphocytes (%) (Auto) , Monocytes (%) (Auto) , Eosinophils (%) (Auto) , Basophils (%) (Auto) , Differential Total Cells Counted 100, Neutrophils % ( Manual) 78H, Lymphocytes % (Manual) 9L, Monocytes % (Manual) 11H, Eosinophils % (Manual) 1, Basophils % (Manual) 0, Band Neutrophils 1, Platelet Estimate DecreasedL, Platelet Morphology Normal, Anisocytosis 1+, Sodium Level 143, Potassium Level 3.4, Chloride Level 107, Carbon Dioxide Level 21, Anion Gap 15, Blood Urea Nitrogen 44H, Creatinine 1.5H, Estimat Glomerular Filtration Rate , Glucose Level 116H, Calcium Level 10.0, Magnesium Level 1.8, Pro-B-Type Natriuretic Peptide 4086H Current Medications Medications (Trade) Dose Ordered Sig/Salvatore Route PRN Reason Start Time Stop Time Status Last Admin Dose Admin Acetaminophen (Tylenol) 650 mg Q4H PRN ORAL For Pain 04/06/17 03:00 05/06/17 02:59 Dextrose (Dextrose 50%) STAT PRN IV Hypoglycemia 04/06/17 08:00 05/06/17 07:59 Dextrose/Sodium Chloride 1,000 ml @ 30 mls/hr Q24H IV 04/06/17 01:45 05/06/17 01:44 04/06/17 01:50 Insulin Aspart (NovoLOG) BEFORE MEALS AND HS SUBQ 04/06/17 06:30 05/06/17 06:29 Ipratropium [place] (Atrovent) 500 mcg Q4H PRN HHN Shortness of Breath 04/06/17 09:00 04/11/17 08:59 Metoprolol Tartrate (Lopressor) 50 mg Q12HR ORAL 04/06/17 09:00 05/06/17 08:59 Pantoprazole (Protonix) 40 mg DAILY IVP 04/06/17 09:00 05/06/17 08:59 04/06/17 08:33 Piperacillin Sod/ Tazobactam Sod 3.375 gm/Dextrose 110 ml @ 27.5 mls/hr Q8HR IVPB 04/06/17 06:00 04/13/17 05:59 04/06/17 13:26 Vancomycin HCl (Vanco rx to dose) 1 ea DAILY PRN MISC Per rx protocol 04/06/17 09:00 05/06/17 08:59 Vancomycin HCl/ Dextrose (Vancomycin/D5W) 275 ml @ 183.708 mls/hr Q24H IVPB 04/06/17 20:00 04/11/17 19:59 MARIA ELENA FAIR Apr 06, 2017 17:15
[2017-04-06] MEDS ORDERED: NS 275ml ONE (19:29)
[2017-04-06] MEDS ORDERED: Vancomycin 1 GM in D5W 275 ML IVPB SCH (20:00)
--- NOTE | 2017-04-07 05:16 | Progress Note ---
DATE: 04/06/2017 CARDIOLOGY PROGRESS NOTE SUBJECTIVE: The patient's condition is worsening. Prognosis appears to be guarded. The patient is refusing medications. He is at significant risk of aspiration. Monitor reveals sinus tachycardia. PHYSICAL EXAMINATION: VITAL SIGNS: Blood pressure marginal 96/62 to 103/66 and oxygen saturation on room air is 94% to 95%. LUNGS: Bilateral breath sounds. Scattered rhonchi. HEART: Regular rhythm. Rapid rate. Normal S1, S2. ABDOMEN: Soft. EXTREMITIES: Trace edema. LABORATORY DATA: White count 7.5, hemoglobin 9.2. Magnesium 1.8, potassium 3.4. Pro-natriuretic peptide is 3400. IMPRESSION: 1. Metastatic prostate cancer. 2. Secondary sinus tachycardia. 3. Aspiration pneumonia. 4. Recovering respiratory failure. 5. Sepsis. 6. Acute on chronic diastolic congestive heart failure. 7. Anemia. PLAN: 1. Antibiotics. 2. Bronchodilators. 3. Respiratory hygiene. 4. Periodic diuresis based on volume status and clinical parameters. He will likely need NG-tube for long-term nutrition unless hospice care is pursued. 5. We will cautiously titrate cardiovascular regimen once the patient is taking medications with compliance. John Raza M.D. DR: DIEGO JOB#: [id number] CC:
--- NOTE | 2017-04-08 06:32 | Discharge Summary 2 SIG ---
DATE OF ADMISSION: 04/02/2017 DATE OF DISCHARGE: 04/06/2017 REASON FOR ADMISSION: 86-year-old male with history of metastatic prostate cancer, was brought to the emergency department by paramedics and found to have hypotension. The patient received intravenous fluids. Blood pressure responded to intravenous fluids. Patient was hypoxemic and supplemental oxygen provided. Pulse oximetry improved with additional oxygenation . White blood count -10.5, hemoglobin- 8.2, and platelets -108,000. BUN- 48 and creatinine- 2.0. Lactic acid -2.3. Alkaline phosphatase elevated - 870. Troponin negative. ProBNP- 3200. Albumin- 2.5. Urinalysis with evidence of urinary tract infection. Chest x-ray showed right lower lobe infiltrate. ADMITTING DIAGNOSES: 1. Sepsis with shock. 2. Pneumonia. 3. Urinary tract infection. 4. Acute hypoxemic respiratory failure secondary to pneumonia. 5. Metastatic prostate cancer. 6. Coronary artery disease status post bypass. 7. Bella catheter secondary to hematuria and urinary retention. 8. Dehydration. 9. Acute renal failure on chronic kidney disease stage 3. 10. History of hypertension. 11. Possible congestive heart failure. HOSPITAL COURSE: The patient was admitted to [facility]. The patient was started on gentle IV fluids. Nephrology and Cardiology consult were requested. The patient was started on empiric antibiotics. Urine culture negative. Blood culture negative. Supplemental oxygen provided to keep saturation above 92%. Pulmonary toilet provided. Cardiology closely followed. Per palm gatherer, recommended periodic diuresis based on volume status and clinical parameters. PSA- 2112. Bridges Supervisor closely followed. Per vascular specialists, the patient had acute renal failure on chronic kidney disease stage 3. He recommended to avoid nephrotoxic, monitor renal parameters and electrolytes and replace as needed,. Anemia was likely secondary to chronic kidney disease. Initial chest x-ray revealed possible right patchy consolidation. Abdominal ultrasound revealed tiny gallstones multiply very large bilateral renal cysts. Venous Duplex of bilateral lower extremities was negative. Follow up chest x-ray revealed mild interstitial edema. Last chest x-ray revealed improvement in interstitial congestion. Swallow evaluation was done. A video swallow evaluation was pending. According to speech therapist, the patient had significant dysphagia with high risk for silent aspiration. She recommended to keep patient NPO and non-oral feedings via NG tube at this time. Placement was arranged to [facility] for insurance purposes. According to all consultants, the patient needs either PEG placement or comfort care. Bioethics committee was requested to assist in further decision making regarding futility of treatment and was pending prior to transfer. . The patient stabilized. Renal parameters improved. Creatinine down to 1.5. Pulse oximetry stable on room air. The patient was stable for transfer to [facility] for insurance purposes either for percutaneous endoscopic gastrostomy or comfort measure. FINAL DIAGNOSES: 1. Sepsis with shock. 2. Aspiration pneumonia. 3. Urinary tract infection. 4. Acute hypoxemic respiratory failure secondary to pneumonia, resolved. 5. Metastatic prostate cancer with metastasis to bone. 6. Dysphagia. 7. Congestive heart failure , [place] Heart Association class 3. 8. Acute on chronic diastolic congestive heart failure. 9. Anemia of chronic disease. 10. Dehydration. 11. Acute renal failure on chronic kidney injury. 12. Hypertension. 13. Dysphagia. 14. Coronary artery disease, status post bypass. 15. History of hypertension. DISCHARGE MEDICATIONS: List of medication was sent with the patient to admitting facility. DISCHARGE INSTRUCTIONS: The patient was discharged to [facility]. FOLLOWUP: Follow up with medical doctor at the admitting hospital. Joni Mai M.D. I have been assigned to dictate discharge summary on this account and I was not involved in the patient's management. Azucena MaNewyork-Presbyterian HospitalEctor N.PNestor DR: NANNETTE JOB#: [id number] CC: JIM
--- NOTE | 2017-04-09 07:42 | Cardiology Report ---
APPROVED REPORT EXAM: Two-dimensional and M-mode echocardiogram with Doppler and color Doppler. M-Mode DIMENSIONS IVSd1.3 (0.7-1.1cm)Left Atrium (MM)1.8 (1.6-4.0cm) LVDd4.0 (3.5-5.6cm)Aortic Root2.9 (2.0-3.7cm) PWd1.4 (0.7-1.1cm)Aortic Cusp Exc.1.5 (1.5-2.0cm) LVDs2.6 (2.5-4.0cm) PWs1.9 cm Other Information Technically limited study due to poor acoustical windows and pts position. Normal left ventricular chamber size, systolic function and wall motion to extent visualized. Left ventricular ejection fraction grossly estimated to be 55 %. Study quality precludes accurate assessment of regional wall motion. Mild left ventricular hypertrophy by 2-D. No evidence of pericardial effusion. All other cardiac chamber sizes appear to be within normal limits. Focal aortic valve sclerosis with adequate cusp excursion. Thickened mitral valve leaflets with normal excursion. Mitral annulus and aortic root calcification. Pulmonic valve not well visualized. Normal tricuspid valve structure. IVC measured at 2.1 cm with physiologic collapse. A color flow and spectral Doppler study was performed and revealed: Mild aortic regurgitation. Mild mitral regurgitation. Mitral diastolic velocities suggest reduced left ventricular relaxation c/w mild LV diastolic dysfunction (Grade I). Trace tricuspid regurgitation. Tricuspid systolic velocities suggests peak right ventricular systolic pressure of 19 mmHg.
== END 2017-04-06 19:30 | disposition short-term general hospital (02) | DRG 871 ==
LOC: EDBD 15:07 → EDBEDREQ 15:29 → EMR 16:01 → EDBEDREQSVC 16:42 → 2W 16:53 → EDBEDREQ 16:55 → 2E 04-06 01:38
PROC: 30233N1 Transfusion of Nonautologous Red Blood Cells into Peripheral Vein, Percutaneous Approach (ICD-10-PCS; principal; 2017-04-03)
DX: A41.9 Sepsis, unspecified organism (principal); R65.21 Severe sepsis with septic shock; J69.0 Pneumonitis due to inhalation of food and vomit; J96.01 Acute respiratory failure with hypoxia; C79.51 Secondary malignant neoplasm of bone; G92 Toxic encephalopathy; I50.33 Acute on chronic diastolic (congestive) heart failure; N17.9 Acute kidney failure, unspecified; M62.82 Rhabdomyolysis; N39.0 Urinary tract infection, site not specified; J98.11 Atelectasis; C61 Malignant neoplasm of prostate; N18.3 Chronic kidney disease, stage 3 (moderate); I12.9 Hypertensive chronic kidney disease with stage 1 through stage 4 chronic kidney disease, or unspecified chronic kidney disease; R33.8 Other retention of urine; R13.10 Dysphagia, unspecified; E86.0 Dehydration; I25.10 Atherosclerotic heart disease of native coronary artery without angina pectoris; Z95.1 Presence of aortocoronary bypass graft; E78.5 Hyperlipidemia, unspecified; K21.9 Gastro-esophageal reflux disease without esophagitis; R62.7 Adult failure to thrive; R26.2 Difficulty in walking, not elsewhere classified; E86.1 Hypovolemia; I51.3 Intracardiac thrombosis, not elsewhere classified; I25.5 Ischemic cardiomyopathy; D69.6 Thrombocytopenia, unspecified; D63.1 Anemia in chronic kidney disease; N28.1 Cyst of kidney, acquired; Z88.2 Allergy status to sulfonamides; Z88.8 Allergy status to other drugs, medicaments and biological substances
CPT/HCPCS: 36415; 71010; 74000; 76700; 80048; 80053; 80202; 81003; 81050; 82150; 82550; 82553; 82962; 83605; 83690; 83735; 83880; 84153; 84300; 84484; 84550; 85007; 85025; 86850; 86900; 86901; 86920; 87040; 87081; 87086; 93005; 93306; 93970; 94640; 94664; 94760; J1815; J7620